=== PATIENT | female | born 1965 | race Caucasian/White ===

== ENCOUNTER 2017-11-03 11:00 | Day surgery (SDC) | payer OTHER ==
[2017-11-03 12:03] LABS: #Eosinphils 0.3 thou/uL (0.0-0.7); #Lymphocytes 2.6 thou/uL (1.20-3.40); #Monocytes 0.7 thou/uL (0.11-0.59); #Neutrophils 6.5 thou/uL (1.40-6.50); %Basophils 0.3 % (0.0-1.0); %Lymphocytes 25.5 % (21.0-51.0); %Monocytes 7.2 % (0.0-10.0); %Neutrophils 64.1 % (42.0-75.0); Hemoglobin 16.7 g/dL (12.0-16.0); Mean Corpuscular HGB CONC 34.4 g/dL (32.0-36.0); Mean Corpuscular Hemoglobin 31.4 pg (27.0-31.0); Mean Corpuscular Volume 91.4 fl (81.0-99.0); Platelet Count 297 thou/uL (130-400); RBC Distribution Width 11.6 % (11.5-14.5); White Blood Cell (WBC) Count 10.2 thou/uL (4.8-10.8)
[2017-11-03 12:33] LABS: ALT (SGPT) 33 U/L (8-55); Albumin 4.4 g/dL (3.5-5.0); Alkaline Phosphatase 97 U/L (40-150); Anion Gap 9 mmol/L (10-20); BUN (Urea Nitrogen) 9 mg/dL (9.8-20.1); Bilirubin, Total 0.9 mg/dL (0.2-1.2); Calc. Creatinine Clearance 0 mL/min (70-130); Calcium 9.8 mg/dL (7.8-10.44); Chloride 108 mmol/L (98-107); Estimated GFR-MDRD 82; Globulin 3.8 g/dL (2.4-3.5); Glucose 76 mg/dL (70-105); Lipase 14 U/L (8-78); Sodium 137 mmol/L (136-145)
[2017-11-03 12:47] LABS: AST (SGOT) 39 U/L (5-34); Carbon Dioxide 18 mmol/L (22-29); Potassium 4.2 mmol/L (3.5-5.1)
[2017-11-03] MEDS ORDERED: Dexamethasone 20 MG/5 ML VIAL ONE (13:11)
[2017-11-03] MEDS ORDERED: Lidocaine 1% PF 5 ML VIAL ONE (13:11)
[2017-11-03] MEDS ORDERED: Ondansetron HCl/PF 4 MG/2 ML Vial ONE (13:11)
[2017-11-03] MEDS ORDERED: PROPOFOL 200 MG/20 ML VIAL ONE (13:11)
[2017-11-03] MEDS ORDERED: Succinylcholine Chloride 20 MG/ML 10 ml SYRINGE FS ONE (13:11)
--- NOTE | 2017-11-03 19:00 | CON ---
DATE OF CONSULTATION: 11/03/2017 CONSULTING PHYSICIAN: Eliazar Ramírez M.D. REASON FOR CONSULTATION: Food impaction. HISTORY OF PRESENT ILLNESS: The patient is a 52-year-old female with past medical history of hypothy roidism and eosinophilic esophagitis, status post dilation and was on Flovent presenting with complai nts of dysphagia. She states that she was in her usual state of health until approximately 1 week ag o when she experienced acute dysphagia characterized as the sensation that food was getting stuck at the level of the xiphoid process. One week ago, this was self limited, lasting approximately 2-3 katya rs and then self resolving. However, yesterday while dining at [employer], she was eating beef louis w and experienced the same dysphagia characterized as a sensation that her food got stuck at the leve l of the xiphoid process again; however, this did not idris with drinking fluid and/or soda as well a s bending over. She even attempted to make herself vomit, which did not alleviate the situation. Th is sense of dysphagia was also accompanied with increased substernal chest pain radiating to her mid back, but did not experience any additional symptoms. She denies any nausea, vomiting, fevers, chill s, hematemesis, hematochezia, melena, abdominal pain or odynophagia. Upon admission to the ER, she w as given a dose of glucagon to attempt to facilitate passage of the food bolus which did not result i n any discernible fact. REVIEW OF SYSTEMS: A 10 category review of systems was obtained with all responses negative except f or those listed in the HPI. PAST MEDICAL HISTORY: As per HPI. PAST SURGICAL HISTORY: Hysterectomy in 2015. FAMILY HISTORY: Clarke's esophagus (mother, father), skin cancer. SOCIAL HISTORY: She denies any tobacco, alcohol or illicit drug use. OUTPATIENT MEDICATIONS: Include levothyroxine. ALLERGIES: No known drug allergies. PHYSICAL EXAMINATION: GENERAL: The patient is lying or sitting in a chair in no acute distress, but did have a cup at beds jayden for which she was spitting into periodically. Alert and oriented x4. NECK: Supple. No JVD noted. No cervical or supraclavicular lymphadenopathy noted either. CARDIOVASCULAR: Regular rate and rhythm with no discernible murmurs, gallops or rubs. PULMONARY: Clear to auscultation bilaterally with no discernible wheezes or rales. ABDOMEN: Normoactive bowel sounds, soft, nondistended. Mild tenderness to palpation in the midepiga stric region. Otherwise, no tenderness to palpation. EXTREMITIES: No cyanosis, clubbing or edema. LABORATORY STUDIES: CBC with a white blood cell count of 10.2, hemoglobin 16.7, hematocrit 48.4, essence telets 297. Chemistry with a sodium of 137, potassium 4.2, chloride 108, carbon dioxide 18, BUN 9, c reatinine 0.74, AST 39, ALT 33, alkaline phosphatase 97, total bilirubin 0.9, albumin 4.4, lipase 14. IMAGING DATA: No current GI imaging is available for review. ASSESSMENT AND PLAN: The patient is a 52-year-old female with past medical history of hypothyroidism and eosinophilic esophagitis, status post dilation presenting with an acute food impaction. Food impaction: The patient was in her usual state of health until yesterday at noon when while eating beef stew she experienced acute onset of dysphagia characterized with the sensation that food was getting stuck at the xiphoid process. Given her history of eosinophilic esophagitis for which he has undergone multip le dilations as well as administration of Flovent in the past, this is a likely source. At this poin t, given the food impaction, most likely from beef within the stew that she ingested yesterday, emerg ent endoscopy is indicated for removal of the food bolus. RECOMMENDATIONS: 1. Proceed with emergent ER EGD for removal of the food bolus. 2. Further recommendations to follow post-EGD.
--- NOTE | 2017-11-03 19:45 | OP ---
DATE OF PROCEDURE: 11/03/2017 PROCEDURES: Esophagogastroduodenoscopy with foreign body removal. INDICATIONS FOR PROCEDURE: Food impaction, dysphagia. DESCRIPTION OF PROCEDURE: After the risks and benefits of the procedure were explained to the patien t including risks of infection, bleeding, perforation, reaction to anesthesia and/or pain, informed c onsent was obtained. The patient was then taken to the endoscopy suite where general anesthesia was administered with intubation of the patient. Using the standard gastroscope, it was then introduced into the mouth with intubation of the esophagus, stomach, and proximal small intestine. The findings are listed below. The patient tolerated the procedure well with no immediate perioperative complica tions. FINDINGS: ESOPHAGUS: Normal appearing mucosa was seen in the proximal esophagus. A small food bolus resemblin g chicken was seen in the midesophagus and easily pushed into the distal portion of the esophagus. M ild mucosal erythema and mild sloughing of the mucosa was seen at the region of this particular food bolus. However, a much larger food bolus was seen in the distal esophagus at the GE junction that wa s then pushed into the stomach with some difficulty, but achieved nonetheless. Upon observation of t he mucosa after the food bolus was advanced into the stomach, the surrounding mucosa was mildly eryth ematous with friability and mild oozing of blood, but no overt ulcerations or perforations were seen in this region. No biopsies were taken during this evaluation due to the increased amount of inflamm ation and likelihood of false positive biopsies and/or risk of perforation. STOMACH: Normal appearing mucosa was seen in the cardia, fundus, body, antrum and incisura. There w as no evidence of erosions, ulcerations, mass lesions or active/recent bleeding. DUODENUM: Normal appearing mucosa was seen in both the duodenal bulb and second portion of the duode num with no evidence of erosions, ulcerations, or mass lesions. IMPRESSION: 1. Food impaction seen within the mid and distal esophagus with successful advancement into the stom ach. 2. Increased mucosal erythema was seen in the mid and distal esophagus with mild sloughing of the mu cosa and mild minimal bleeding noted, most likely result of the presence of the food bolus and prolon ged periods of time with compression of the mucosa. 3. Otherwise, normal upper endoscopy. RECOMMENDATIONS: 1. The patient can be discharged today with follow up in the GI Clinic within 2 weeks for further ev aluation of eosinophilic esophagitis. 2. Would place the patient on omeprazole 40 mg twice daily as part of treatment for eosinophilic eso phagitis and to facilitate healing of the esophageal mucosa. 3. Would place the patient on either a full liquid or soft diet until seen in the GI Clinic to preve nt for further food bolus impaction.
== END 2017-11-03 18:00 | disposition home or self-care (01) ==
LOC: ERS 11:00 → SDC 13:57
PROVIDERS: ATTEND Internal Medicine
PROC: 0DC58ZZ Extirpation of Matter from Esophagus, Via Natural or Artificial Opening Endoscopic (ICD-10-PCS; principal; 2017-11-03)
DX: T18.128A Food in esophagus causing other injury, initial encounter (principal); E03.9 Hypothyroidism, unspecified; Z98.890 Other specified postprocedural states; Z79.899 Other long term (current) drug therapy
CPT/HCPCS: 36415; 80053; 83690; 85025; 96374; J1100; J1610; J2001; J2405; J2704

== ENCOUNTER 2017-12-03 13:26 | Outpatient (CLI) | payer OTHER ==
--- NOTE | 2017-12-03 14:09 | ULT ---
THYROID ULTRASOUND: INDICATIONS: Thyroid nodule. History of benign biopsy. TECHNIQUE: Forde-scale color Doppler images were obtained of the thyroid gland. FINDINGS: The right thyroid lobe measures 3.3 x 1.0 x 1.1 cm. The left thyroid lobe measures 1.8 x 4.1 x 1.9 cm. The thyroid isthmus measures 0.23 cm. There is a 3.4 x 1.5 x 1.8 cm nodule within the mid inferior pole, left thyroid gland, that is solid and isoechoic to hyperechoic to the background thyroid parenchyma. The margin is well circumscribed. The lesion is wider than it is tall with no associated suspicious calcifications. IMPRESSION: TI-RADS category 3 lesion of the left thyroid lobe, mildly suspicious. Fine needle aspiration is rec ommended if not already performed. This lesion was reportedly biopsied in 2015 and was reportedly be nign. No additional followup is recommended. POS: JOANN
== END 2017-12-03 13:27 | disposition home or self-care (01) ==
LOC: SCSULT 13:26
PROVIDERS: ATTEND Family Medicine
DX: E04.9 Nontoxic goiter, unspecified (principal)
CPT/HCPCS: 76536

== ENCOUNTER 2019-01-18 07:54 | Outpatient (CLI) | payer OTHER ==
--- NOTE | 2019-01-21 09:28 | MMO ---
Bilateral MAMMO Bilat Screen [facility]. CLINICAL HISTORY: Patient is 54 years old and is seen for screening. The patient has no family history of breast cancer. The patient has no personal history of cancer. VIEWS: The views performed were: bilateral craniocaudal and bilateral mediolateral oblique. FILMS COMPARED: The present examination has been compared to a prior imaging study performed at [facility] on 02/19/2017. This study has been interpreted with the assistance of computer-aided detection. MAMMOGRAM FINDINGS: The breasts are almost entirely fat. There are no suspicious masses, suspicious calcifications, or new areas of architectural distortion. IMPRESSION: THERE IS NO MAMMOGRAPHIC EVIDENCE OF MALIGNANCY. A ROUTINE FOLLOW-UP MAMMOGRAM IN 1 YEAR IS RECOMMENDED. ACR BI-RADS Category 1 - Negative MAMMOGRAPHY NOTE: 1. A negative mammogram report should not delay a biopsy if a dominant of clinically suspicious mass is present. 2. Approximately 10% to 15% of breast cancers are not detected by mammography. 3. Adenosis and dense breasts may obscure an underlying neoplasm.
== END 2019-01-18 07:55 | disposition home or self-care (01) ==
LOC: SCSMAMMO 07:54
PROVIDERS: ATTEND Family Medicine
DX: Z12.31 Encounter for screening mammogram for malignant neoplasm of breast (principal)
CPT/HCPCS: 77067